=== PATIENT | female | born 1985 | race Two or more races ===

== ENCOUNTER 2017-06-13 11:34 | Emergency (ER) | payer MEDICAID ==
[~2017-06-13] VITALS: Ht 152.4 cm; Wt 59.0 kg
[~2017-06-13 11:34] MED LIST: DICLEGIS1 TCP PO; MACROBID 100MG100 MG PO; PHENERGAN 25MG.25 M1 PO; PRENATAL PLUS1 TA1 PO
--- NOTE | 2017-06-13 13:04 | [facility]gent Treatment Center Report ---
History of Present Issue Date/Time Seen by Provider 06/13/17 1303 Visit Reason Pt arrived:Walked Presenting Problem:PT ADVISES SHE PLAYED SOCCER YESTERDAY AND HAS PAIN IN HER RIGHT LEG. ADVISES SHE HAS HAD PAIN FOR A OCUPLE OF WEEKS BUT IT IS WORSE THIS MORNING. PT HAS PAIN RT LEG, UPPER AREA TO GROIN AREA. Location if Accident: Onset of symptoms date/time:/ or onset unknown for:MEDICAL HX UNKNOWN Have you (or family members/close friends) recently traveled outside the [place]? N If Yes, where/when: Have you had exposure to infectious disease within the past month? TB? Other? Specify: Here w/ significant other c/o right anterior thigh pain. Mild x weeks. Worse w/ soccer however worse and constant since playing soccer yesterday. No particular injury "just since the game". Pain described as constant, worse with movement, only right anterior thigh, ibuprofen "here and there" last week helped then, no treatment since change in pain yesterday. Denies N/T. No hip or knee pain. Muscle feels tight. Pt is not driving but spouse returning to work and pt will be home alone with toddler. Source patient Exam Limitations no limitations ALLERGIES Coded Allergies: No Known Allergies (09/02/15) Home Medications Reported Medications MULTIVIT-MIN W/FE-FA ( Multivitamin Tablet) 1 TAB PO DAILY History Medical History General CAD? No Angina: No AK: No Hypertension? No Hyperlipidemia? No CHF? No DVT? No PE? No COPD? No Asthma? No Anemia? No GERD? No Gastric ulcers? No GI Bleed? No Hernia? No Thyroid Problems? No Hypothyroidism? No CVA? No Seizures? No Diabetes? No Insulin Dependent: No Insulin Pump: No Home FSBS? No Renal Insuffiency? No UTI? No Stones? No BPH? No GB Disease: No Nephritic Syndrome? No Asplenia? No Hepatitis? No Sickle Cell Disease? No Arthritis? No Migraines? No Cataracts? No Glaucoma? No MRSA? No HIV? No TB? No Anxiety? No Depression? No Cancer? No More? No Immunization HX DT/Tetanus > 10 Years Ago Flu Refused Pneumonia 01/22/2016 Surgical Hx Previous Surgery?Y R FOOT Social History Smoking Hx Smoker: Never Smoker Tobacco: No Alcohol Alcohol: No Review of Systems All Other Systems Reviewed and Negative Constitutional denies fever, denies malaise, denies weakness (lower extremities) Musculoskeletal see HPI Skin denies change in color, denies lesions, denies lumps Psychiatric/Neurological denies numbness, denies tingling Physical Exam Vital Signs Vital Signs Date Time Temp Pulse Resp B/P Pulse O2 O2 Flow FiO2 Ox Delivery Rate 06/13 1351 98.7 71 18 111/56 98 06/13 1350 98.7 71 18 111/56 98 06/13 1317 18 06/13 1225 98.7 71 16 111/56 98 06/13 1138 98.7 71 16 111 98 General Appearance normal appearance, no apparent distress Respiratory Status No: respiratory distress. Cardiovascular no peripheral edema Peripheral Pulses Pulses normal Yes (DP/PT) Back gait abnormality (slow, slight limp favoring RLE) Extremities normal range of motion (right hip, knee, ankle), normal inspection ( mario legs), tenderness throughout right quadricep muscle, right anterior thigh pain with all LE ROM, tightening of right quaricep muscle Strength 5 Lower Ext (L), 5 Lower Ext (R) Neurologic alert, no motor/sensory deficits, oriented x 3 Reflexes Reflexes normal Yes (patellar bilaterally) Skin intact, normal color, warm/dry Medical Decision Making LABS/Meds/Orders Pt receiving controlled substance in ED? No Results/Orders Current Medication Orders Sig/[place] Start time Last Medication Dose Route Stop Time Status Admin Ketorolac 60 MG ONCE ONE 06/13 1315 DC 06/13 Tromethamine IM 06/13 1316 1317 Ketorolac 0 .STK-MED ONE 06/13 1315 DC Tromethamine .ROUTE Progress [facility] Progress Notes Date 06/13/17 Time 1348 Comment Pain improved. Walking around room. Departure Departure Time of Disposition 1348 Disposition DC Home or Self Care(routine) Clinical Impression Primary Impression: Strain of right quadriceps muscle, fascia and tendon, initial encounter Condition STABLE Referrals ELVA ROBLES APRN (Family) Follow up IMMEDIATELY for new or worsening symptoms OR no noticeable improvement over the next 72 hours. Patient Instructions DI for Quadriceps Strain Additional Instructions * Ibuprofen every 6 hours with meal as needed for pain/inflammation. * Remember you had a toradol shot, similiar anti-inflammatory in clinic around 1 :20pm. No additional ibuprofen until around 7pm this evening. * No additional anti-inflammatories like motrin, aleve, advil with the above amount of ibuprofen. You CAN still take Tylenol every 4 hours as needed if you need something more for pain. * Ice x15-20 mins 3-4 times a day for first 48 hours after the initial injury followed by moist heat x15-20 mins 3-4 times a day to affected area * Muscle relaxer every 8 hours as needed for muscle spasms but remember, it WILL cause drowsiness. You can NOT take it and drive, operate machinary or care for small children by yourself * Keep this area active. No movement leads to more stiffness. However, take it easy too and avoid heavy lifting, pushing, pulling. Discharge Counseling Counseled pt/family regarding diagnosis, medications/RX, home care, follow up needs Prescriptions Current Visit Scripts Cyclobenzaprine Hcl (Flexeril) 5-10 MG PO TID PRN muscle spasm #4 TAB will cause drowsiness at [id number]
[2017-06-13] MEDS ORDERED: FLEXERIL10 MG PO (13:16)
[2017-06-13 13:51] VITALS: BP 111/56
== END 2017-06-13 13:51 | disposition home or self-care (01) ==
LOC: ER 11:34 → UTC 11:43
DX: S76.111A Strain of right quadriceps muscle, fascia and tendon, initial encounter (principal); X50.9XXA Other and unspecified overexertion or strenuous movements or postures, initial encounter; Y93.66 Activity, soccer; Y92.9 Unspecified place or not applicable